=== PATIENT | male | born 1985 | race Caucasian/White ===

== ENCOUNTER 2019-10-19 01:01 | Emergency (ER) | payer SELFPAY ==
[2019-10-19 01:13] VITALS: BP 128/85; PULSE 83; RESP 18; TEMP 37.1; O2SAT 95
[2019-10-19] MEDS: ONDANSETRON INJ 4 MG/2 ML VIAL IV PUSH (01:43)
[2019-10-19] MEDS: SODIUM CHLORIDE 0.9% IV 1,000 ML 999 ML IV CONT (01:43)
[2019-10-19] MEDS: DICYCLOMINE HCL INJ 20 MG/2 ML VIAL IM (01:44)
[2019-10-19 01:45] LABS: Basophils Absolute Auto 0.1 K/mm3 (0.0-0.1); Basophils Percent Auto 0.5 % (0.2-1.2); Eosinophils Absolute Auto 0.7 K/mm3 (0-0.3); Hematocrit 45.7 % (42.0-52.0); Hemoglobin 15.5 g/dL (14.0-18.0); Immature Granulocyte Absolute 0.07 K/mm3 (0.00-0.031); Immature Granulocyte Percent A 0.5 % (0-0.5); Lymphocytes Absolute Auto 2.44 K/mm3 (0.9-3.2); Lymphocytes Percent Auto 16.9 % (18.3-44.2); Mean Corpuscular HGB Conc 33.9 g/dl (32-36); Mean Corpuscular Hemoglobin 30.4 pg (26-34); Mean Corpuscular Volume 89.6 fl (80-100); Mean Platelet Volume 10.8 fl (7.4-10.4); Monocytes Absolute Auto 0.9 K/mm3 (0.1-0.6); Neutrophils Absolute Auto 10.3 K/mm3 (1.3-6.7); Neutrophils Percent Auto 71.1 % (45.5-73.1); Platelet Count Result 288 k/mm3 (150-375); Red Cell Distribution Width 13.2 % (11.5-14.5); White Blood Count 14.4 K/mm3 (4.5-10.0)
--- NOTE | 2019-10-19 01:55 | ED.GENADULT ---
HPI - General Adult General Chief complaint: Abdominal Pain Stated complaint: I FEEL SICK Time Seen by Provider: 10/19/19 01:08 History of Present Illness HPI narrative: Patient is a 34-year-old male who presents ER stating that he feels sick. By feeling sick he needs he has been feeling nauseated and has been having diarrhea. Diarrhea ongoing for the last 3 to 5 days he cannot really give a definite timeline. No fevers or chills or sweats. Associated with intermittent abdominal cramping that is worse in the left lower quadrant and radiates up into the back of his throat. No known sick contacts. No blood in his urine or in his stool. He is without dysuria or frequent urination. Has not found any alleviating factors at home. Related Data Allergies Allergy/AdvReac Type Severity Reaction Status Date / Time No Known Allergies Allergy Verified 10/19/19 01:24 Review of Systems Review of Systems: All systems reviewed & are unremarkable except as noted in HPI and below Constitutional: Constitutional: Denies chills, Reports fatigue and Denies fever(s) ENT: Denies nasal congestion and Denies sore throat Cardiovascular: Cardiovascular: Denies chest pain and Denies radiating jaw, neck or arm pain Respiratory: Respiratory: Denies cough, Denies dyspnea and Denies wheezing Gastrointestinal: Gastrointestinal: Reports abdominal pain, Reports diarrhea, Reports nausea and Denies vomiting Genitourinary: Genitourinary: Denies hematuria, Denies dysuria and Denies urinary frequency PMFSH Past Medical History Medical History (Updated 10/19/19 @ 04:04 by Jordy Hurley MD) No pertinent past medical history Surgical History Surgical History (Updated 10/19/19 @ 01:57 by Jordy Hurley MD) History of ear surgery Social History Social History (Updated 10/19/19 @ 01:58 by Jordy Hurley MD) Tobacco type: cigarettes Exam Narrative: Exam Narrative: GENERAL: Well-appearing, well-nourished, and in no acute distress. HEAD: Normocephalic, atraumatic. CHEST: Clear to auscultation. No respiratory distress. HEART: Regular rate and rhythm. Normal peripheral pulses. ABDOMEN: Soft, nontender, nondistended. EXTREMITIES: Normal range of motion. No edema. SKIN: Warm, dry, no rash. NEURO: Alert and oriented x3. PSYCH: Normal mood and affect. Course Course Emergency Course: Pain resolved. Discharge home. Vital Signs Vital signs: Vital Signs Temperature 98.7 F 10/19/19 01:13 Pulse Rate 83 10/19/19 01:13 Respiratory Rate 18 10/19/19 01:13 Blood Pressure 128/85 10/19/19 01:13 Pulse Oximetry 95 10/19/19 01:13 Temperature 98.7 F 10/19/19 01:13 Pulse Rate 80 10/19/19 02:34 Respiratory Rate 18 10/19/19 02:34 Blood Pressure 120/82 10/19/19 02:34 Pulse Oximetry 94 10/19/19 02:34 Medical Decision Making Vital Signs Vital Signs: Vital Signs Temperature 98.7 F 10/19/19 01:13 Pulse Rate 83 10/19/19 01:13 Respiratory Rate 18 10/19/19 01:13 Blood Pressure 128/85 10/19/19 01:13 Pulse Oximetry 95 10/19/19 01:13 Temperature 98.7 F 10/19/19 01:13 Pulse Rate 80 10/19/19 02:34 Respiratory Rate 18 10/19/19 02:34 Blood Pressure 120/82 10/19/19 02:34 Pulse Oximetry 94 10/19/19 02:34 Lab Data Result diagrams: 10/19/19 01:37 10/19/19 01:37 Labs: Lab Results 10/19/19 10/19/19 Range/Units 01:37 01:37 WBC 14.4 H (4.5-10.0) K/mm3 RBC 5.10 (4.6-6.20) M/mm3 Hgb 15.5 (14.0-18.0) g/dL Hct 45.7 (42.0-52.0) % MCV 89.6 (80-100) fl MCH 30.4 (26-34) pg MCHC 33.9 (32-36) g/dl RDW 13.2 (11.5-14.5) % Plt Count 288 (150-375) k/mm3 MPV 10.8 H (7.4-10.4) fl Immature Gran % (Auto) 0.5 (0-0.5) % Neut % (Auto) 71.1 (45.5-73.1) % Lymph % (Auto) 16.9 L (18.3-44.2) % [place] % (Auto) 6.0 (2.6-8.5) % Eos % (Auto) 5.0 H (0-4.4) % Baso % (Auto) 0.5 (0.2-1.2) % Lymph # (Auto)
[2019-10-19 02:00] LABS: Alanine Aminotransferase 29 U/L (4-50); Albumin Level 4.2 g/dL (3.5-5.1); Alkaline Phosphatase 73 U/L (38-126); Aspartate Amino Transferase 21 U/L (17-59); Bilirubin,Total 0.3 mg/dL (0.2-1.3); Blood Urea Nitrogen 9 mg/dL (9-20); Calcium 8.7 mg/dL (8.4-10.2); Carbon Dioxide 24 mmol/L (22-30); Chloride 108 mmol/L (98-107); Estimated CRCL calculation 121 ml/min; Estimated Glomerular Filt Rate > 60; Glucose 116 mg/dL (75-110); Lipase 64 U/L (23-300); Potassium 3.9 mmol/L (3.4-5.0); Sodium 138 mmol/L (137-145)
[2019-10-19 02:34] VITALS: BP 120/82; PULSE 80; RESP 18; O2SAT 94
[2019-10-19 03:00] VITALS: BP 133/81; PULSE 86; RESP 16; O2SAT 97
[2019-10-19 03:40] VITALS: BP 144/88; PULSE 88; RESP 16; O2SAT 97
[2019-10-19 04:33] VITALS: BP 121/87; PULSE 80; RESP 18; TEMP 36.6; O2SAT 95
== END 2019-10-19 04:45 | disposition home or self-care (01) ==
PROVIDERS: Emergency Provider Emergency Medicine
DX: K52.9 Noninfective gastroenteritis and colitis, unspecified (principal); F17.210 Nicotine dependence, cigarettes, uncomplicated
CPT/HCPCS: 36415; 80053; 83690; 85025; 96361; 96372; 96374; 99284; J0500; J2405; J7030

== ENCOUNTER 2019-10-25 02:48 | Emergency (ER) | payer SELFPAY ==
[2019-10-25 03:55] VITALS: BP 135/82; PULSE 100; RESP 18; TEMP 36.9; O2SAT 100
--- NOTE | 2019-10-25 04:03 | ED.ALLEREA ---
HPI - Allergic Reaction General Chief complaint: Allergic Reaction Stated complaint: bite? Time Seen by Provider: 10/25/19 03:38 Source: patient Mode of arrival: ambulatory Limitations: no limitations History of Present Illness HPI narrative: This patient is a 34 year old male who presents for evaluation of possible insect bite to his left forearm. PAtient states approximately 1 hours ago he thinks he suffered an insect bite. He states he felt something bite him and he developed redness and burning to the area. He denies fever, nausea, vomiting or itching. Onset (ago): hour(s) Related Data Allergies Allergy/AdvReac Type Severity Reaction Status Date / Time No Known Allergies Allergy Verified 10/19/19 01:24 Review of Systems Review of Systems: All systems reviewed & are unremarkable except as noted in HPI and below Constitutional: Constitutional: Denies chills and Denies fever(s) Cardiovascular: Cardiovascular: Denies chest pain Respiratory: Respiratory: Denies cough and Denies dyspnea Integumentary/Breasts: Skin/Breast: Reports pruritus and Reports erythema PMFSH Past Medical History Medical History No pertinent past medical history Surgical History Surgical History History of ear surgery Social History Social History (Updated 10/19/19 @ 01:58 by Jordy Hurley MD) Tobacco type: cigarettes Gender identity (if verbalized by the patient): Male Exam Const: General: no acute distress and alert Nutritional Appearance: obese Orientation/consciousness: patient oriented x3 HENMT: Head: normocephalic Eyes: EOM: EOMs intact bilaterally Resp: Effort & Inspection: normal respiratory effort Skin: Other: left forearm distal to elbow is area of mild erythema at site of insect bites Neuro: General: patient oriented x3 and moves all extremities Course Reevaluation(s) Reevaluation #1: I have discussed with patient his arm appears to just show local reaction from insect bite. No antibiotics needed at this time. Date: 10/25/19 Time: 04:06 Vital Signs Vital signs: Vital Signs Temperature 98.5 F 10/25/19 03:55 Pulse Rate 100 10/25/19 03:55 Respiratory Rate 18 10/25/19 03:55 Blood Pressure 135/82 10/25/19 03:55 Pulse Oximetry 100 10/25/19 03:55 Temperature 98.5 F 10/25/19 03:55 Pulse Rate 70 10/25/19 04:20 Respiratory Rate 18 10/25/19 04:20 Blood Pressure 132/80 10/25/19 04:20 Pulse Oximetry 98 10/25/19 04:20 Discharge Plan Discharge Clinical Impression: Insect bite of arm, left Qualifiers: Encounter type: initial encounter Qualified Code(s): S40.862A - Insect bite (nonvenomous) of left upper arm, initial encounter Patient Disposition: Home, Self-Care Condition: Stable Instructions: Insect Bite or Sting (ED) Prescriptions: No Action dicyclomine 20 mg tablet 20 mg PO QID Qty: 20 RF: 0 ondansetron 4 mg tablet,disintegrating 4 mg PO Q6H PRN (Reason: nausea and vomiting) Qty: 10 RF: 0 Follow-up/Referrals: Shahrzad Anderson DO [Physician] - PHYSICIAN,POISING INSPECTOR [Primary Care Provider] - Discharge Date/Time: 10/25/19 04:21
[2019-10-25 04:20] VITALS: BP 132/80; PULSE 70; RESP 18; O2SAT 98
== END 2019-10-25 04:21 | disposition home or self-care (01) ==
PROVIDERS: Emergency Provider General Practice
DX: S40.862A Insect bite (nonvenomous) of left upper arm, initial encounter (principal); W57.XXXA Bitten or stung by nonvenomous insect and other nonvenomous arthropods, initial encounter
CPT/HCPCS: 99281

== ENCOUNTER 2020-01-12 23:27 | Emergency (ER) | payer MEDICAID, SELFPAY ==
--- NOTE | ~2020-01-12 | XR_ITS ---
EXAMINATION: XR chest 1V portable EXAM DATE: 01/13/2020 07:57 INDICATION: Medical clearance. Altered mental status. TECHNIQUE: Portable AP frontal chest x-ray was obtained. There is no prior study for comparison. FINDINGS: The lungs are clear. There are no pleural effusions. The cardiomediastinal silhouette is within normal limits. There is no pneumothorax suspected. The bones and soft tissues are unremarkab le. IMPRESSION: No acute cardiopulmonary findings. Reviewed, dictated and finalized at location A.
--- NOTE | ~2020-01-12 | CT_ITS ---
EXAMINATION: CT brain wo con EXAM DATE: 01/13/2020 08:08 INDICATION: Altered mental status, psychosis. TECHNIQUE: Spiral CT of the head was performed without contrast. Axial, coronal and sagittal images were reviewed. The dose-length product (DLP) for this examination was 605.33 mGy-cm. The exposure w as tailored according to patient size, and iterative reconstruction (ASIR) was used as additional dos e reduction technique. Comparison is made to prior examination from 09/23/2004. FINDINGS: There is no acute intraparenchymal hemorrhage. No evidence of intraparenchymal brain mass lesion. No evidence of acute infarction. There is no mass effect or midline shift. The ventricles are normal in size. There are no extra-axial collections. There are no acute calvarial fractures. T he orbits are unremarkable. Soft tissue is unremarkable. Mild ethmoid mucoperiosteal thickening. IMPRESSION: Unremarkable head CT examination. Reviewed, dictated and finalized at location A.
[2020-01-12 23:36] VITALS: BP 164/108; PULSE 117; RESP 20; TEMP 36.6; O2SAT 99
--- NOTE | 2020-01-12 23:56 | ED.PSYCH ---
HPI - Psych General Chief Complaint: Psychiatric Symptoms <Jordy Hurley MD - Last Filed: 01/13/20 04:33> Stated Complaint: Suicidal Ideation <Jordy Hurley MD - Last Filed: 01/13/20 04:33> Time Seen by Provider: 01/12/20 23:30 <Jordy Hurley MD - Last Filed: 01/13/20 04:33> History of Present Illness HPI Narrative: Patient is a 34-year-old male who presents ER with suicidal ideation. Reports he has been having thoughts about killing himself for the last 2 to 3 months. He reports he has been hearing voices since he was a child in his head and that they are causing want him to kill himself. They tell him that he is a monster and that he should kill himself. He reports he drank about a cup of bleach to kill himself yesterday. He intends to drink more bleach and himself.. He has never been hospitalized for depression or hallucinations in the past. Reports he has a father who has history of mental illness and hallucinations. Patient denies any drug use. No other complaints at this time. <Jordy Hurley MD - Last Filed: 01/13/20 04:33> Related Data Home Medications: Home Medications Medication Instructions Recorded Confirmed No Home Medications 01/12/20 01/12/20 <Jordy Hurley MD - Last Filed: 01/13/20 04:33> Allergies/Adverse Reactions: Allergies Allergy/AdvReac Type Severity Reaction Status Date / Time No Known Allergies Allergy Verified 01/12/20 23:44 <Jordy Hurley MD - Last Filed: 01/13/20 04:33> Review of Systems Review of Systems: All systems reviewed & are unremarkable except as noted in HPI and below <Jordy Hurley MD - Last Filed: 01/13/20 04:33> Constitutional: Constitutional: Denies chills, Denies fever(s) and Denies weakness <Jordy Hurley MD - Last Filed: 01/13/20 04:33> ENT: Denies nasal congestion and Denies sore throat <Jordy Hurley MD - Last Filed: 01/13/20 04:33> Respiratory: Respiratory: Denies cough and Denies dyspnea <Jordy Hurley MD - Last Filed: 01/13/20 04:33> Gastrointestinal: Gastrointestinal: Denies abdominal pain, Denies nausea and Denies vomiting <Jordy Hurley MD - Last Filed: 01/13/20 04:33> Neurologic: Denies headache(s), Denies focal weakness and Denies numbness <Jordy Hurley MD - Last Filed: 01/13/20 04:33> Psychiatric: Psychiatric: Denies depression, Denies homicidal ideation and Reports suicidal ideation <Jordy Hurley MD - Last Filed: 01/13/20 04:33> Comments: Hallucinations <Jordy Hurley MD - Last Filed: 01/13/20 04:33> PMFSH Social History Social History: Social History (Updated 10/19/19 @ 01:58 by Jordy Hurley MD) Tobacco type: cigarettes Gender identity (if verbalized by the patient): Male <Jordy Hurley MD - Last Filed: 01/13/20 04:33> Exam Narrative: Exam Narrative: GENERAL: Unkempt-appearing, well-nourished, and in no acute distress. HEAD: Normocephalic, atraumatic. Eyes: PERRLA, EOMI. ENT: Mucous membranes moist. No pharyngeal erythema or tonsillar exam. CHEST: Clear to auscultation. No respiratory distress. HEART: Regular rate and rhythm. Normal peripheral pulses. ABDOMEN: Soft, nontender, nondistended. EXTREMITIES: Normal range of motion. No edema. NEURO: Alert and oriented x3. PSYCH: Reports suicidal ideation and auditory hallucinations. No elbow towards others. Flat affect. <Jordy Hurley MD - Last Filed: 01/13/20 04:33> Course Course Emergency Course: Care turned over to myself at shift change. Seen and evaluated by myself agree with initial H&P currently resting in bed awake and alert x4 did review patient's elevated white blood cell count. Elevated on last visit as well afebrile he has no complaints of any kind chest x-ray is clear with negative COVID test. The patient denies any rhinorrhea sore throat cough headache abdominal pain nausea vomiting Patient was accepted to [facility]
[2020-01-13 00:06] LABS: Alanine Aminotransferase 29 U/L (4-50); Albumin Level 4.8 g/dL (3.5-5.1); Alkaline Phosphatase 68 U/L (38-126); Anion Gap 16 mmol/L (8-16); Aspartate Amino Transferase 24 U/L (17-59); Bilirubin,Total 0.4 mg/dL (0.2-1.3); Blood Urea Nitrogen 9 mg/dL (9-20); Calcium 9.5 mg/dL (8.4-10.2); Carbon Dioxide 19 mmol/L (22-30); Chloride 104 mmol/L (98-107); Estimated CRCL calculation 125 ml/min; Estimated Glomerular Filt Rate > 60; Ethanol < 10 mg/dL (<10); Glucose 149 mg/dL (75-110); Potassium 3.4 mmol/L (3.4-5.0); Sodium 139 mmol/L (137-145)
[2020-01-13 00:09] LABS: Basophils Absolute Auto 0.1 K/mm3 (0.0-0.1); Basophils Percent Auto 0.3 % (0.2-1.2); Eosinophils Absolute Auto 0.1 K/mm3 (0-0.3); Eosinophils Percent Auto 0.3 % (0-4.4); Hematocrit 45.7 % (42.0-52.0); Hemoglobin 15.8 g/dL (14.0-18.0); Immature Granulocyte Absolute 0.11 K/mm3 (0.00-0.031); Immature Granulocyte Percent A 0.6 % (0-0.5); Lymphocytes Absolute Auto 2.73 K/mm3 (0.9-3.2); Lymphocytes Percent Auto 14.1 % (18.3-44.2); Mean Corpuscular HGB Conc 34.6 g/dl (32-36); Mean Corpuscular Hemoglobin 30.7 pg (26-34); Mean Corpuscular Volume 88.7 fl (80-100); Mean Platelet Volume 10.8 fl (7.4-10.4); Monocytes Absolute Auto 1.1 K/mm3 (0.1-0.6); Monocytes Percent Auto 5.4 % (2.6-8.5); Neutrophils Absolute Auto 15.4 K/mm3 (1.3-6.7); Neutrophils Percent Auto 79.3 % (45.5-73.1); Platelet Count Result 334 k/mm3 (150-375); Red Blood Count 5.15 M/mm3 (4.6-6.20); Red Cell Distribution Width 12.7 % (11.5-14.5); White Blood Count 19.4 K/mm3 (4.5-10.0)
[2020-01-13 01:33] LABS: Add Urine Microscopic? NO; Appearance Urine Clear (Clear); Bacteria Urine Trace /hpf; Bilirubin Urine Negative (Negative); Blood Urine Negative (Negative); Color Urine Straw (Yellow); Glucose Urine UA Negative (Negative); Ketones Urine Negative (Negative); Leukocyte Esterase Ur Negative LEU/UL (Negative); Nitrate Urine Negative (Negative); Protein Urine Negative (Negative); Specific Grav Ur 1.004 (1.001-1.035); Squamous Epithelial Cell Urine Rare /hpf (Few); Urobilinogen Urine Negative mg/dL (<2.0); WBC Urine 0-3 /hpf
[2020-01-13 01:53] LABS: Amphetamine Screen Urine Negative (Negative); Barbiturate Screen Urine Negative (Negative); Benzodiazepines Screen Urine Negative (Negative); Cannabinoid Screen Urine Negative (Negative); Cocaine Screen Urine Negative (Negative); Methadone Screen Urine Negative (Negative); Opiate Screen Urine Negative (Negative); Phencyclidine Screen Urine Negative (Negative)
[2020-01-13 02:19] VITALS: BP 126/85; PULSE 79; RESP 18; TEMP 36.7; O2SAT 100
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
--- NOTE | 2020-01-13 05:34 | PC.NURSE ---
CANTS form filled out and completed at this time. DCFS called. Intake #1: [id number] ([facility]) Intake #2: [id number] ([facility])
--- NOTE | 2020-01-13 05:41 | PC.NURSE ---
Patient disclosed to kadie Ruff that he drank bleach yesterday. Unknown amount.
[2020-01-13 06:59] VITALS: BP 133/86; PULSE 98; TEMP 36.6; O2SAT 96
--- NOTE | 2020-01-13 07:05 | PC.NURSE ---
meal tray ordered for pt at this time. pt called at this time to update her on poc.
[2020-01-13 07:17] VITALS: BP 117/68; PULSE 87; RESP 18; TEMP 36.8; O2SAT 97
--- NOTE | 2020-01-13 07:22 | PC.NURSE ---
This RN into pts room. Pt is laying in bed. Asked pt is he is still having SI thoughts and he states not right now . Also asked pt is he had a good support system at home to which he replies I used too but not anymore . Pt also states that he see things and hears things that others would not. Pt states that sometimes these voices tell him to do things. Sitter is a door and room is safe. Meal was ordered for pt.
--- NOTE | 2020-01-13 09:17 | PC.NURSE ---
Elzbieta from crisis called to check on status of pt. States she is going to start calling around again for placement.
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
--- NOTE | 2020-01-13 10:05 | PC.NURSE ---
Elzbieta called from crisis requesting information on pt sent to [facility] @ [phone] This was faxed at 10:18 outside sales representative insurance from [employer] called and requested information sent to her. This was done at 10:27
[2020-01-13 12:19] LABS: SARS-CoV-2 RNA PCR Negative
--- NOTE | 2020-01-13 13:33 | PC.NURSE ---
[facility] accepted pt. Dr. De La Cruz is accepting physician. Will notify Elzbieta at crisis.
--- NOTE | 2020-01-13 14:03 | PC.NURSE ---
This RN called Claudine Stern to notify her that pt is being transferred to [facility].
--- NOTE | 2020-01-13 14:47 | PC.NURSE ---
Called [facility] and spoke with Sophie about pts ETA to facility
== END 2020-01-13 14:50 ==
LOC: ANHED 23:47
PROVIDERS: Emergency Provider Emergency Medicine
DX: R45.851 Suicidal ideations (principal); F17.210 Nicotine dependence, cigarettes, uncomplicated; Z20.828 Contact with and (suspected) exposure to other viral communicable diseases
CPT/HCPCS: 36415; 70450; 71045; 80053; 80307; 81003; 84443; 85025; 87081; 87635; 87880; 99285; C9803; U0003

== ENCOUNTER 2020-02-23 13:04 | Emergency (ER) | payer OTHER, SELFPAY ==
[2020-02-23 13:30] VITALS: BP 121/72; PULSE 95; RESP 16; TEMP 36.7; O2SAT 98
[2020-02-23 13:36] VITALS: BP 121/72; PULSE 95; RESP 16; TEMP 36.7; O2SAT 98
--- NOTE | 2020-02-23 14:03 | ED.DENTAL ---
HPI - Dental/Oral General Chief complaint: Dental/Oral Stated complaint: ABSCESS TOOTH Source: patient and RN notes reviewed Mode of arrival: ambulatory History of Present Illness HPI Narrative: This is a 34-year-old white male who presented to our urgent care today with complaints of tooth pain in decay. According to patient he has been experiencing mouth pain due to decayed teeth for approximately 1 month. Patient notes that the pain radiates to the right side of his face. patient notes that he took ibuprofen at home for the pain with it no longer works. Patient has multiple missing and decayed teeth. Patient gums are also edematous. The patient denies SOB, CP, palpitation, extremity numbness, lightheadedness, dizziness, constipation, diarrhea, chills, or fever. MD Complaint: tooth pain Teeth map: 1. decay 2. decay 3. decay 4. decay 5. decay 6. decay 7. decay Related Data Home Medications Medication Instructions Recorded Confirmed fluoxetine 10 mg PO DAILY 02/23/20 02/23/20 nicotine 21 mg TOPICAL DAILY 02/23/20 02/23/20 olanzapine 10 mg PO DAILY 02/23/20 02/23/20 Allergies Allergy/AdvReac Type Severity Reaction Status Date / Time No Known Allergies Allergy Verified 02/23/20 13:26 Review of Systems Review of Systems: All systems reviewed & are unremarkable except as noted in HPI and below (10 point system review) PMFSH Past Medical History Medical History No pertinent past medical history Surgical History Surgical History History of ear surgery Social History Social History Tobacco type: cigarettes Gender identity (if verbalized by the patient): Male Exam Narrative: Exam Narrative: GENERAL: This is a well-nourished, well-developed patient, in no apparent distress. HEAD: normocephalic, atraumatic. EYES: PERRL. Sclera clear/white. Vision is grossly intact. EARS: External ears normal, auditory canals clear and without drainage, TMs normal without perforation. Hearing grossly intact. NOSE: External nose normal with no obvious nasal discharge, nares without redness, no rhinorrhea. THROAT: Mucous membranes moist, posterior pharynx clear. Multiple missing and decayed teeth with edematous gum line. NECK: Neck supple, non-tender without lymphadenopathy, masses or thyromegaly. CARDIOVASCULAR: Regular rate and rhythm without murmurs, gallops, or rubs. RESPIRATORY: Clear to auscultation. Breath sounds equal bilaterally. No wheezes, rales, or rhonchi. GASTROINTESTINAL: Abdomen soft, non-tender, nondistended. Bowel sounds are active. No hepato-splenomegaly, or palpable masses. No guarding. SKIN: warm, intact with no suspicious lesions or rash, good texture and turgor. NEURO: awake, alert, and oriented to person, place and time. There were no obvious focal neurologic abnormalities. Steady gait EXTREMITIES: Normal range of motion. No edema. No calf tenderness. Negative Homans sign bilaterally. BACK: Nontender without deformity or crepitance. No flank tenderness. Course Course Emergency Course: Discharge with amoxicillin 100 mg twice daily for 10 days. Patient instructed that he will need to follow-up with a dentist for treatment Vital Signs Vital signs: Vital Signs Temperature 98.0 F 02/23/20 13:30 Pulse Rate 95 02/23/20 13:30 Respiratory Rate 16 02/23/20 13:30 Blood Pressure 121/72 02/23/20 13:30 Pulse Oximetry 98 02/23/20 13:30 Temperature 98.0 F 02/23/20 13:36 Pulse Rate 95 02/23/20 13:36 Respiratory Rate 16 02/23/20 13:36 Blood Pressure 121/72 02/23/20 13:36 Pulse Oximetry 98 02/23/20 13:36 Discharge Plan Discharge Clinical Impression: Toothache, Dental caries Patient Disposition: Home, Self-Care Condition: Stable Instructions: Antibiotic Form, Toothache (ED) Additional
== END 2020-02-23 14:00 | disposition home or self-care (01) ==
PROVIDERS: Emergency Provider Nurse Practitioner; PCP Family Medicine
DX: K08.89 Other specified disorders of teeth and supporting structures (principal); K02.9 Dental caries, unspecified
CPT/HCPCS: 99213; G0463

== ENCOUNTER 2020-03-06 11:02 | Outpatient (NON) | payer OTHER, SELFPAY ==
[2020-03-07 21:14] LABS: SARS-CoV-2 RNA PCR Positive
== END 2020-03-06 11:03 ==
LOC: ANHCOVIDDT 11:03
PROVIDERS: PCP Family Medicine; Visit Provider Family Medicine
DX: U07.1 COVID-19 (principal)
CPT/HCPCS: 87635; C9803; U0003